=== PATIENT | female | born 1975 | race Two or more races ===

== ENCOUNTER → 2024-09-12 | Outpatient (CLI) | payer MEDICAID, SELFPAY ==
--- NOTE | 2024-09-12 10:00 | XR_ITS ---
Examination: Breast ultrasound, unilateral, right complete Date and time of exam: September 12, 2024 1013 hrs. Indications: Outside mammogram July 25, 2024 6 mm mass inferior right breast Technique: Real-time albarado scale ultrasonographic imaging performed right breast including all 4 quadrants as well as nipple retroareolar and axillary region. Findings: No cystic or solid mass 27 mm right axillary lymph node Impression: BI-RADS Category 1: Negative study
--- NOTE | 2024-09-12 10:30 | XR_ITS ---
Examination: Diagnostic digital mammography, unilateral, right Computer aided detection 3-D breast Tomosynthesis, unilateral Date and time of exam: 09/12/2024, 10:09 AM Comparisons: 05/25/2025 Indications: Mass seen in the right inframammary fold Screening exam. Technique: Nonmagnified MLO, CC views of the right breast have been obtained, reconstructed from 3-D Tomosynthesis images. R2 computer aided detection program utilized for evaluation of suspicious masses and/or abnormal calcifications. 3-D Tomosynthesis images obtained. Technologist: Findings: There are scattered areas of fibroglandular density. The inframammary fold is not included on the MLO view. Incomplete exam. Impression: Incomplete exam. Inframammary fold is not included on the MLO spot compression view. Recommend repeat MLO spot compression views to include the inframammary fold. BI-RADS category 0: Incomplete assessment; need additional imaging evaluation
== END | disposition home or self-care (01) ==
PROVIDERS: PCP Nurse Practitioner; Referring Provider Nurse Practitioner; Visit Provider Nurse Practitioner
DX: R92.8 Other abnormal and inconclusive findings on diagnostic imaging of breast (principal)
CPT/HCPCS: 76641; 77061; 77065; G0279